=== PATIENT | female | born 1955 | race Caucasian/White ===

== ENCOUNTER → 2019-11-16 | Outpatient (CLI) | payer OTHER ==
[~2019-11-16] VITALS: Ht 157.5 cm; Wt 51.7 kg
[~2019-11-16] MED LIST: ACYCLOVIR 400400 MG PO; BUTALB-ACETAMI1 EACH PO; COQ-10100 MG PO; FISH OIL 1,4001 EACH PO; GLUCOSAMINE &1 EACH PO; IMITREX100 MG PO; LIPITOR40 MG PO; MULTIVITAMINS PO; NORTRIPTYLINE H50 M3 PO; TURMERIC500 M2 PO
[2019-11-16 09:33] LABS: URINE BILIRUBIN NEGATIVE (Negative); URINE BLOOD NEGATIVE (Negative); URINE CLARITY CLEAR; URINE COLOR YELLOW; URINE GLUCOSE-RANDOM* NEGATIVE (Negative); URINE KETONES NEGATIVE (Negative); URINE LEUKOCYTES-REFLEX NEGATIVE (Negative); URINE NITRITE-REFLEX NEGATIVE (Negative); URINE PROTEIN (DIPSTICK) NEGATIVE (Negative); URINE UROBILINOGEN 0.2 E.U./dl (0.2-1.0)
[2019-11-16 09:36] LABS: HEMATOCRIT 36.7 % (37.0-47.0); HEMOGLOBIN 12.1 gm/dL (12.0-15.0); MCHC 32.9 g/dL (28.0-37.0); MCV 94.4 fL (80.0-100.0); RBC 3.89 mil/uL (4.20-5.00); RDW 12.1 % (10.5-14.5); WBC 4.2 thou/uL (4.0-11.0)
[2019-11-16 09:40] LABS: CALCIUM 9.5 mg/dL (8.5-10.1); CREATININE 0.6 mg/dL (0.6-1.0); POTASSIUM 4.3 mmol/L (3.5-5.1)
--- NOTE | 2019-11-16 15:48 | EKG ---
[facility] [place] [address] ELECTROCARDIOGRAM REPORT Name: KATHERIN ARNETT Room #: PRE IN M.R.#: [id number] Admission: Attend Phys: Cecil Ibrahim Discharge: Date of : 55 Report #: [id number] THIS REPORT FOR: cc: FAM - Family physician unknown FAM - Family physician unknown Joel Jaime MD [facility] ~ THIS REPORT FOR: //name// [facility] Test Date: 2019-11-16 Test Time: 09:24:31 Pat Name: KATHERIN ARNETT Department: Room: Gender: F [employer]: aleida : 1955 Requested By: Cecil Sorensen Order Number: [id number] MD: Joel Jaime Measurements Intervals [place] Rate: 87 P: 61 MN: 142 QRS: 51 QRSD: 102 T: 48 QT: 376 QTc: 453 Interpretive Statements Sinus rhythm Normal tracing No previous ECG available for comparison Electronically Signed On 11-16-2019 15:47:27 CDT by Joel Jaime [email or web address] <ELECTRONICALLY SIGNED> By: Joel Jaime MD, FAC 11/16/19 1547 0924 3 Joel Jaime MD, FACC /EPI
== END ==
LOC: PAC 08:36 → PRE 12-02 08:36 → EDSTATUS 12-02 13:56 → PRE 12-02 18:11
PROVIDERS: Orthopaedic Surgery Sports Medicine
DX: Z01.812 Encounter for preprocedural laboratory examination (principal); M19.012 Primary osteoarthritis, left shoulder

== ENCOUNTER 2020-01-08 08:07 | Inpatient (IN) | payer OTHER ==
[~2020-01-08] VITALS: Ht 157.5 cm; Wt 51.3 kg
--- NOTE | ~2020-01-08 | O ---
[facility] [place] [place] [address] OPERATIVE REPORT Name: KATHERIN ARNETT Room #: 444-P ADM IN M.R.#: [id number] Admission: 01/08/20 Attend Phys: Cecil Ibrahim Discharge: Date of : 55 Report #: [id number] THIS REPORT FOR: cc: KYLE GRANT JR Physician not on staff Cecil Sorensen MD ~ CC: Cecil GRANT Physician staff DATE OF SERVICE: 01/08/2020 PREOPERATIVE DIAGNOSES: Left shoulder pain, osteoarthritis, biceps tendinopathy. POSTOPERATIVE DIAGNOSIS: Left shoulder pain, osteoarthritis, biceps tendinopathy. PROCEDURE PERFORMED: Left total shoulder arthroplasty with open biceps tenodesis. SURGEON: Cecil Sorensen MD CRM ARCHITECT: None. ANESTHESIA: General with preoperative ultrasound-guided interscalene block. FLUIDS: 800 mL of crystalloid. ESTIMATED BLOOD LOSS: Approximately 75 mL. IMPLANTS UTILIZED: DePuy Global Unite stem size 8 with a 40 x 15 mm eccentric humeral head and a size 40 mm anchor peg glenoid. DESCRIPTION OF PROCEDURE: After proper identification of the patient and operative site in preoperative holding area, the operative site was signed by myself. Prophylactic antibiotics given. The patient elected to receive an ultrasound-guided block after reviewing the risks, benefits, alternatives and potential complications with anesthesia. After a satisfactory block, the patient was brought back to the operative suite after induction of satisfactory general anesthesia. She was carefully positioned in the beach chair with head of bed elevated approximately 40 degrees. Left shoulder was sterilely prepped and draped in usual manner and placed within a Training Advisor limb positioning system, which was utilized throughout the entire procedure. Anterior deltopectoral approach was planned. Final skin draping was with Ioban. Skin was incised sharply. Full thickness skin flaps were developed. Cephalic vein [facility] [place] [place] [address] [place] [address] OPERATIVE REPORT Name: KATHERIN ARNETT Room #: 444-P [facility] IN .R.#: [id number] Admission: 01/08/20 Attend Phys: Cecil Ibrahim Discharge: Date of : 55 Report #: [id number] was identified and retracted laterally. Subdeltoid space was carefully retracted with a Sesar deltoid retractor. Biceps tendinopathy was present. Partial thickness tearing and the groove was noted and a biceps tenodesis was performed in to the undersurface of the pectoralis major. Free edge of the stump was followed proximally. Rotator interval was opened. Anterior circumflex vessels were identified, ligated and cauterized. A lesser tuberosity osteotomy was performed. This was removed in its entirety and was of good quality. Next, the capsule was released off the inferior humerus. Advanced degenerative changes were noted on both sides of the joint. The remaining rotator cuff was intact. Peripheral osteophytes were removed, 135 degree neck shaft angle osteotomy was performed in approximately 25 degrees of retroversion matching her [place] ira version. The humerus was reamed up to a size 8 stem matching the preoperative templating. Anterior capsule was excised off the subscapularis. Axillary nerve was identified and protected throughout the entire procedure and carefully protected. Circumferential labral release and remaining biceps tendon were removed. Glenoid was prepared. It was a small size and a 40 mm glenoid was all that could be placed on this side. Central guide pin was carefully positioned. Glenoid face was reamed, some mild cystic changes were noted. Step drill was utilized and then the peripheral pegs were drilled. Derotation pegs were utilized and this was performed, all pegs were contained. Any remaining soft tissue was carefully removed. Trial implant was placed. It was well and fully seated. This was then removed. FloSeal was utilized. This area was then dried while the glenoid was bone grafted on the back table and cement was prepared. FloSeal was irrigated free. This area was dried. The bone grafted glenoid was impacted after the peripheral pegs had been injected with a Tuohy syringe with cement. Excess bone cement was removed. Glenoid was held fully was held well seated into position until the cement had fully cured. It was stable. Plastic dura was used to protect this while the humeral stem was broached and a 40 x 15 mm head provided the best overall recreation of the proximal humeral anatomy. There was good stability posteriorly and approximately 50% translation. Trial implants were removed. Four #2 FiberWires were placed within the anterolateral cortex and around the lesser tuberosity for repair of the subscapularis. The Global Unite stem was assembled on the backtable. Inferior 2 sutures were wrapped around the stem. Stem was carefully impacted into position. Head was positioned, eccentricity was noted. It was then impacted. Shoulder was reduced. Overall, satisfactory position of the components was noted. The joint was thoroughly irrigated with antibiotic irrigant multiple times throughout the procedure. Subscapularis was repaired with four #2 FiberWires in a modified Dev-Erik technique and then the lateral portion of the rotator interval was closed with #2 FiberWire. Joint was again thoroughly irrigated. Then, 1 gram vancomycin powder was utilized, half at deep, half at more superficial. Deltopectoral interval was closed with 0 Vicryl, 2-0 Vicryl for the subcutaneous tissues, final skin closure was with [address] [address] OPERATIVE REPORT Name: KATHERIN ARNETT Room #: 444-P ADM IN M.R.#: [id number] Admission: 01/08/20 Attend Phys: Cecil Ibrahim Discharge: Date of : 55 Report #: [id number] Monocryl. This was sealed with Dermabond and a sterile Aquacel dressing was applied as well as a sling, which will be utilized for 4 weeks postoperatively. By: 1835 1851 Cecil Sorensen MD /vincenzo
[2020-01-08 12:07] VITALS: BP 131/80
[2020-01-08 16:05] VITALS: BP 132/71
[2020-01-08 20:30] VITALS: BP 126/48
[2020-01-09 04:00] VITALS: BP 100/52
[2020-01-09 05:18] LABS: HEMATOCRIT 27.9 % (37.0-47.0); HEMOGLOBIN 9.5 gm/dL (12.0-15.0)
[2020-01-09 05:35] LABS: POTASSIUM 3.7 mmol/L (3.5-5.1)
[2020-01-09 08:30] VITALS: BP 99/51
[2020-01-09 16:18] VITALS: BP 127/78
[2020-01-09 20:30] VITALS: BP 134/80
[2020-01-10 04:45] VITALS: BP 121/72
[2020-01-10 07:31] VITALS: BP 112/67
[2020-01-10 07:48] VITALS: BP 121/72
[2020-01-10] MEDS ORDERED: PHENERGAN 25 MG25 M1 PO (08:59)
== END 2020-01-10 11:17 | disposition home or self-care (01) | DRG 483 ==
LOC: PRE 08:07 → 4S 11:05 → TBA 11:05 → PRE 12:01 → OR 14:28 → EDSTATUS 15:35 → 4S 16:09
PROVIDERS: ADMIT Orthopaedic Surgery Sports Medicine
PROC: 0LS40ZZ Reposition Left Upper Arm Tendon, Open Approach (ICD-10-PCS; principal; 2020-01-08)
PROC: 0RRK0JZ Replacement of Left Shoulder Joint with Synthetic Substitute, Open Approach (ICD-10-PCS; principal; 2020-01-08)
DX: M19.012 Primary osteoarthritis, left shoulder (principal); Z03.818 Encounter for observation for suspected exposure to other biological agents ruled out
CPT/HCPCS: 10102; 50010; 50101; 50172; 50386; 50417; 50697; 50733; 50935; 51751; 52001; 52138; 52256; 53000; 53078; 54118; 56524; 56525; 56526; 56530; 57095; 57103; 62110; 62900; 64039; 70005